=== PATIENT | male | born 1985 | race American Indian/Alaskan Native ===

== ENCOUNTER 2016-07-24 19:22 | Emergency (ER) | payer SELFPAY | END 2016-07-24 20:00 | disposition left against medical advice (07) | LOC: ED 19:22 | DX: R42 Dizziness and giddiness (principal); R11.2 Nausea with vomiting, unspecified; Z53.21 Procedure and treatment not carried out due to patient leaving prior to being seen by health care provider ==

== ENCOUNTER 2016-11-08 18:44 | Emergency (ER) | payer SELFPAY | END 2016-11-08 20:22 | disposition left against medical advice (07) | LOC: ED 18:44 | DX: R53.1 Weakness (principal); R42 Dizziness and giddiness; Z53.21 Procedure and treatment not carried out due to patient leaving prior to being seen by health care provider ==

== ENCOUNTER 2017-01-28 00:49 | Inpatient (IN) | payer OTHER ==
[2017-01-28 02:01] LABS: Basophils % (Auto) 1.1 % (0.0-1.8); Eosinophils % (Auto) 2.9 % (0.0-4.3); Hematocrit 43.9 % (35.5-45.6); Hemoglobin 14.7 gm/dl (11.8-15.2); Mean Corpuscular HGB Conc 33 % (32-34); Mean Corpuscular Hemoglobin 31 pg (28-32); Mean Corpuscular Volume 92 fl (84-94); Platelet Count 273 K/mm3 (140-440); Red Blood Count 4.78 M/mm3 (3.65-5.03); Red Cell Distribution Width 13.5 % (13.2-15.2); White Blood Count 10.3 K/mm3 (4.5-11.0)
[2017-01-28 02:09] LABS: Blood Urea Nitrogen 16 mg/dL (9-20); Calcium 9.2 mg/dL (8.4-10.2); Carbon Dioxide 24 mmol/L (22-30); Glucose 107 mg/dL (75-100)
[2017-01-28 02:10] LABS: Anion Gap 18 mmol/L; Chloride 99.6 mmol/L (98-107); Potassium 3.8 mmol/L (3.6-5.0); Sodium 138 mmol/L (137-145)
--- NOTE | 2017-01-28 09:48 | XRay Report ---
AP CHEST: HISTORY: Hypertension AP view of the chest demonstrates a normal mediastinal and cardiac contour with clear lungs and normal bony and soft tissue structures. IMPRESSION: Unremarkable AP chest.
[2017-01-28 09:49] LABS: INR 0.95 (0.87-1.13)
[2017-01-28 09:50] LABS: Partial Thromboplastin Time 31.3 Sec. (24.2-36.6)
[2017-01-28 10:02] LABS: Alanine Aminotransferase 26 units/L (7-56); Albumin 4.6 g/dL (3.9-5); Albumin/Globulin Ratio 1.6 %; Alkaline Phosphatase 38 units/L (35-129); Total Protein 7.5 g/dL (6.3-8.2)
[2017-01-28 10:06] LABS: Bilirubin,Direct < 0.2 mg/dL (0-0.2)
[2017-01-28] MEDS ORDERED: APRESOLINE ONE (11:27)
[2017-01-28] MEDS ORDERED: MORPHINE IV PRN ×2 (11:38→11:55)
[2017-01-28] MEDS ORDERED: AMBIEN PO PRN (11:38)
[2017-01-28] MEDS ORDERED: NITROSTAT SL PRN (11:38)
[2017-01-28] MEDS ORDERED: SODIUM CHLORIDE FLUSH SYRINGE 10 ML IV PRN (11:38)
--- NOTE | 2017-01-28 11:42 | History and Physical Report ---
History of Present Illness Date of examination: 01/28/17 Date of admission: 01/28/17 08:39 Chief complaint: Chest pain History of present illness: This is a 31 y/o male with h/o asthma, HTN presented with c/o chest pain. He states that it started on Sunday, located on the anterior chest wall pressure in type without any radiation. when he was anxious. The pain was intermittent since then, 8/10 in intensity no aggravating factor, relieves on its own. Today it recurred again and more intense and lasting longer than usual and thats why EMS was summoned. According to the EMS record he was diaphoretic at the scene. However he denies shortness of breath, cough, nausea vomiting dizziness or sense of impending doom. He denied any recent travel leg pain or swelling. His chest pain is now resolved. He states he's never seen a physician for chest pain prior he does admit to anxiety. Past medical History: h/o HTN, asthma Past surgical History: None Social History: Lives with family, denies any smoking, drinking and elicit drug abuse. Family History: Significant for HTN, CHF in mother Review of System: Constitutional: no fever, no chills, no weight loss Ears, eyes, nose, mouth and throat: no nasal congestion, no nasal discharge, no sinus pressure, no vision change, no red eye. Neck: No neck pain or rigidity. Cardiovascular: + chest pain, no orthopnea, no palpitations, no leg swelling Respiratory: No shortness of breath, no cough, no congestion, no wheezing Gastrointestinal: no abdominal pain, no nausea, no vomiting Genitourinary : no dysuria, no hematuria Musculoskeletal: no joint swelling or muscle ache Integumentary: no rash, no pruritis Neurological: no parathesias, no numbness, no tingling Endocrine: no cold or heat intolerance, no polyuria or polydipsia Hematologic/Lymphatic: no easy bruising, no easy bleeding, no gland swelling Allergic/Immunologic: no urticaria, no angioedema. Medications and Allergies Allergies Allergy/AdvReac Type Severity Reaction Status Date / Time No Known Allergies Allergy Verified 01/28/17 01:03 Home Medications Medication Instructions Recorded Confirmed Last Taken Type Amlodipine Besylate [Norvasc] 5 mg PO DAILY 30 Days 01/29/17 Unknown Rx Lisinopril [Zestril TAB] 20 mg PO QDAY #30 tablet 01/29/17 Unknown Rx Pantoprazole [Protonix] 40 mg PO QDAY #30 tablet 01/29/17 Unknown Rx Exam - Physical Exam Narrative exam: GENERAL: This is well-developed obese AAM lying on bed appeared to be in no discomfort. HEENT: Normocephalic. Atraumatic. Extraocular motions are intact. No conjunctival congestion or icterus. Patient has moist mucous membranes. External auditory canal and nares patent bilaterally. NECK: Supple. Trachea midline. No JVD, thyromagaly or lymphadenopathy. CHEST/LUNGS: Clear to auscultated bilaterally. There is no respiratory distress noted, breathing nonlabored. No wheezes crackles or rhonchi. HEART/CARDIOVASCULAR: Regular in rate and rhythm. PMI at the apex. There is no gallop rub or murmur. ABDOMEN: Abdomen is soft, nontender. Patient has normal bowel sounds. There is no abdominal distention. No organomagaly or rigidity. SKIN: There is no rash, no erythrema. There is no diaphoresis. Warm and dry. NEUROLOGY: The patient is awake, alert, and oriented. The patient is cooperative. The patient has normal speech. No focal motor deficit. MUSCULOSKELETAL: No joint effusion or tenderness. Muscle strength equal bilaterally. No muscle wasting. EXTRIMITY: No edema, cyanosis or clubbing. PSYCH: No depression or anxiety noted. Cooperative. - Constitutional Vitals: Temp Pulse Resp BP Pulse Ox 98.4 F 83 17 126/75 93 01/28/17 01:36 01/28/17 06:30 01/28/17 06:30 01/28/17 06:30 01/28/17 06:30 Results - Labs CBC & Chem 7: 01/28/17 11:49 01/28/17 11:49 - Imaging and Cardiology Chest x-ray: report reviewed Assessment and Plan Chest pain - will admit to telemetry bed - monitor with serial CE and EKG - will place on Aspirin, statin - as needed SL NTG and iv morphin for pain - Monitor BP, add betablocker and ACEI - order 2D echo and stress test in the am - cardiology consult - cardiac diet now, NPO after midnight - provide DVT Px with lovenox h/o asthma - not on exacerbation - nebulizer as needed Morbid obesity - counselled for diet and exercise HTN - cont lisinopril DVT Px - lovenox
[2017-01-28 12:33] LABS: Basophils % (Auto) 0.8 % (0.0-1.8); Eosinophils % (Auto) 3.5 % (0.0-4.3); Hematocrit 45.7 % (35.5-45.6); Hemoglobin 15.4 gm/dl (11.8-15.2); Mean Corpuscular HGB Conc 34 % (32-34); Mean Corpuscular Hemoglobin 31 pg (28-32); Mean Corpuscular Volume 92 fl (84-94); Platelet Count 294 K/mm3 (140-440); Red Blood Count 4.99 M/mm3 (3.65-5.03); Red Cell Distribution Width 13.5 % (13.2-15.2); White Blood Count 9.3 K/mm3 (4.5-11.0)
[2017-01-28 12:51] LABS: Anion Gap 18 mmol/L; BUN/Creatinine Ratio 13.33; Blood Urea Nitrogen 12 mg/dL (9-20); Calcium 8.9 mg/dL (8.4-10.2); Carbon Dioxide 28 mmol/L (22-30); Chloride 98.6 mmol/L (98-107); Glucose 89 mg/dL (75-100); Potassium 4.4 mmol/L (3.6-5.0); Sodium 140 mmol/L (137-145)
[2017-01-28] MEDS: ZESTRIL PO SCH (13:19)
--- NOTE | 2017-01-28 16:11 | Emergency Department Report ---
ED Chest Pain HPI - General Chief Complaint: Chest Pain Stated Complaint: CHEST PAIN Time Seen by Provider: 01/28/17 07:56 Source: patient, EMS Mode of arrival: Stretcher Limitations: No Limitations - History of Present Illness Initial Comments: Patient complains of anterior chest tightening which is not pleuritic or radiating. He states that it started on Sunday when he was anxious. He took a Valium at that time. It was intermittent since then. Today it recurred and EMS was summoned. According to the EMS record he was diaphoretic at the scene. When I asked him about this he did admit that he was sweating. However he denied shortness of breath nausea vomiting dizziness or sense of impending doom. He denied cough. He denied any recent travel leg pain or swelling. His chest pain is now resolved. He states he's never seen a physician for chest pain prior he does admit to anxiety. MD Complaint: chest pain -: Gradual, days(s) Onset: during rest Pain Location: substernal Pain Radiation: none Severity: moderate Quality: tightness Consistency: intermittent, now resolved Improves With: nothing Worsens With: nothing re: diaphoresis (possibly according to EMS record yes). denies: nausea, vomting Other Symptoms: denies: cough, fever, syncope Treatments Prior to Arrival: none Aspirin use within the Past 7 Days: (0) No - Related Data Previous Rx's Medication Instructions Recorded Last Taken Type Amlodipine Besylate [Norvasc] 2.5 mg PO DAILY 30 Days 05/01/15 05/31/16 Rx Allergies Allergy/AdvReac Type Severity Reaction Status Date / Time No Known Allergies Allergy Verified 01/28/17 01:03 Heart Score - HEART Score History: Moderately suspicious EKG: Non-specific Age: < 45 Risk factors: 1-2 risk factors Troponin: < normal limit HEART Score: 3 - Critical Actions Critical Actions: 0-3 pts:0.9-1.7%risk of adverse cardiac event.Candidate for discharge ED Review of Systems ROS: Stated complaint: CHEST PAIN Other details as noted in HPI Constitutional: denies: chills, fever Eyes: denies: eye pain, eye discharge, vision change ENT: denies: ear pain, throat pain Respiratory: denies: cough, shortness of breath, wheezing Cardiovascular: chest pain. denies: palpitations Endocrine: no symptoms reported Gastrointestinal: denies: abdominal pain, nausea, diarrhea Genitourinary: denies: urgency, dysuria Musculoskeletal: denies: back pain, joint swelling, arthralgia Skin: denies: rash, lesions Neurological: denies: headache, weakness, paresthesias Psychiatric: anxiety. denies: depression Hematological/Lymphatic: denies: easy bleeding, easy bruising ED Past Medical Hx - Past Medical History Previous Medical History?: Yes Hx Hypertension: Yes Hx Asthma: Yes Additional medical history: PNEUMONIA, back pain - Surgical History Past Surgical History?: No - Family History Family history: other (no first-degree relatives with myocardial infarction) - Social History Smoking Status: Never Smoker Substance Use Type: None - Medications Home Medications: Home Medications Medication Instructions Recorded Confirmed Last Taken Type Amlodipine Besylate [Norvasc] 2.5 mg PO DAILY 30 Days 05/01/15 01/28/17 Rx ED Physical Exam - General Limitations: No Limitations General appearance: alert, in no apparent distress, obese (somewhat morbidly obese) - Head Head exam: Present: atraumatic, normocephalic - Eye Eye exam: Present: normal appearance. Absent: scleral icterus - ENT ENT exam: Present: mucous membranes moist - Neck Neck exam: Present: normal inspection - Respiratory Respiratory exam: Present: normal lung sounds bilaterally. Absent: respiratory distress - Cardiovascular Cardiovascular Exam: Present: regular rate, normal rhythm. Absent: systolic murmur, diastolic murmur, rubs, gallop - GI/Abdominal GI/Abdominal exam: Present: soft, normal bowel sounds. Absent: distended, tenderness, guarding, rebound - Rectal Rectal exam: Present: deferred - Extremities Exam Extremities exam: Present: normal inspection - Back Exam Back exam: Present: normal inspection - Neurological Exam Neurological exam: Present: alert, oriented X3, CN II-XII intact. Absent: motor sensory deficit - Psychiatric Psychiatric exam: Present: normal affect, normal mood - Skin Skin exam: Present: warm, dry, intact, normal color. Absent: rash ED Course Vital Signs 01/28/17 01/28/17 01/28/17 01:07 01:11 01:21 Temperature Pulse Rate 87 84 90 Respiratory 15 10 L 15 Rate Blood Pressure 148/79 148/79 Blood Pressure [Left] O2 Sat by Pulse 98 98 99 Oximetry 01/28/17 01/28/1701/28/17 01:25 01:30 01:36 Temperature 98.4 F Pulse Rate 87 86 90 Respiratory 19 17 15 Rate Blood Pressure 148/79 149/81 Blood Pressure 148/79 [Left] O2 Sat by Pulse 98 96 99 Oximetry 01/28/17 01/28/17 01/28/17 02:00 02:30 03:00 Temperature Pulse Rate 87 85 Respiratory 22 21 Rate Blood Pressure 146/79 137/79 152/74 Blood Pressure [Left] O2 Sat by Pulse 95 96 96 Oximetry 01/28/17 01/28/17 01/28/17 03:30 04:00 04:31 Temperature Pulse Rate Respiratory Rate Blood Pressure 147/80 147/81 153/70 Blood Pressure [Left] O2 Sat by Pulse 90 91 94 Oximetry 01/28/17 01/28/17 01/28/17 05:00 05:30 06:00 Temperature Pulse Rate 84 82 Respiratory 16 16 Rate Blood Pressure 169/85 151/82 141/74 Blood Pressure [Left] O2 Sat by Pulse 93 92 91 Oximetry 01/28/17 06:30 Temperature Pulse Rate 83 Respiratory 17 Rate Blood Pressure 126/75 Blood Pressure [Left] O2 Sat by Pulse 93 Oximetry - Reevaluation(s) Reevaluation #1: Reviewed the patient's prehospital EKGs. They look like her typical for LVH but there are inverted T waves in the inferolateral leads. There is increased voltage. Skin is cannot be excluded but it does look like an LVH pattern. There is a slight amount of ST depression in the inferior leads. The EKG taken here is essentially similar with inferolateral changes increased voltage J- point elevation in V2. Consider LVH consider ischemia. The patient remained calm, the emergency department. He was admitted to the hospitalist service in stable condition with further care and evaluation. 01/28/17 16:12 DAMON score - Damon Score Age > 65: (0) No Aspirin use within the Past 7 Days: (0) No 3 or more CAD Risk Factors: (0) No 2 or more Angina events in past 24 hrs: (0) No Known CAD with more than 50% Stenosis: (0) No Elevated Cardiac Markers: (0) No ST Deviation Greater than 0.5mm: (0) No DAMON Score: 0 ED Medical Decision Making - Lab Data Result diagrams: 01/28/17 11:49 01/28/17 11:49 - EKG Data -: EKG Interpreted by Me (see EKGs prehospital and emergency Department discussed above) - Radiology Data Radiology results: report reviewed (no acute process) Critical care attestation.: If time is entered above; I have spent that time in minutes in the direct care of this critically ill patient, excluding procedure time. ED Disposition Clinical Impression: Uncontrolled hypertension Chest pain Qualifiers: Chest pain type: unspecified Qualified Code(s): R07.9 - Chest pain, unspecified Disposition: -09 OP ADMIT IP TO THIS HOSP Is pt being admited?: Yes Does the pt Need Aspirin: Yes Condition: Stable Time of Disposition: 16:14
--- NOTE | 2017-01-28 18:30 | Consultation ---
History of Present Illness Consult date: 01/28/17 Medications and Allergies Allergies Allergy/AdvReac Type Severity Reaction Status Date / Time No Known Allergies Allergy Verified 01/28/17 01:03 Home Medications Medication Instructions Recorded Confirmed Last Taken Type Amlodipine Besylate [Norvasc] 2.5 mg PO DAILY 30 Days 05/01/15 01/28/17 Rx Active Meds: Active Medications Aspirin (Baby Aspirin) 81 mg PO QDAY [facility] Atorvastatin Calcium (Lipitor) 40 mg PO QHS [facility] Lisinopril (Zestril) 5 mg PO QDAY [facility] Last Admin: 01/28/17 13:19 Dose: 5 mg Morphine Sulfate (Morphine) 2 mg IV Q5MIN PRN PRN Reason: Chest Pain unrelieved by NTG Nitroglycerin (Nitrostat) 0.4 mg SL Q5M PRN PRN Reason: Chest Pain Pantoprazole (Protonix) 40 mg PO QDAY [facility] Sodium Chloride (Sodium Chloride Flush Syringe 10 Ml) 10 ml IV PRN PRN PRN Reason: LINE FLUSH Zolpidem Tartrate (Ambien) 5 mg PO QHS PRN PRN Reason: Sleep Physical Examination Vital Signs Pulse Resp Pulse Ox 87 15 98 01/28/17 01:07 01/28/17 01:07 01/28/17 01:07 Results 01/28/17 11:49 01/28/17 11:49 Cardiac Enzymes 01/28/17 Range/Units 09:05 AST 14 (5-40) units/L Coagulation 01/28/17 Range/Units 09:05 PT 12.6 (12.2-14.9) Sec. INR 0.95 (0.87-1.13) APTT 31.3 (24.2-36.6) Sec. CBC 01/28/17 Range/Units 11:49 WBC 9.3 (4.5-11.0) K/mm3 RBC 4.99 (3.65-5.03) M/mm3 Hgb 15.4 H (11.8-15.2) gm/dl Hct 45.7 H (35.5-45.6) % Plt Count 294 (140-440) K/mm3 Lymph # 2.2 (1.2-5.4) K/mm3 Door # 0.5 (0.0-0.8) K/mm3 Eos # 0.3 (0.0-0.4) K/mm3 Baso # 0.1 (0.0-0.1) K/mm3 Comprehensive Metabolic Panel 01/28/17 01/28/17 Range/Units 09:05 11:49 Sodium 140 (137-145) mmol/L Potassium 4.4 (3.6-5.0) mmol/L Chloride 98.6 (98-107) mmol/L Carbon Dioxide 28 (22-30) mmol/L BUN 12 (9-20) mg/dL Creatinine 0.9 (0.8-1.5) mg/dL Glucose 89 (75-100) mg/dL Calcium 8.9 (8.4-10.2) mg/dL Direct Bilirubin < 0.2 (0-0.2) mg/dL AST 14 (5-40) units/L ALT 26 (7-56) units/L Alkaline Phosphatase 38 (35-129) units/L Total Protein 7.5 (6.3-8.2) g/dL Albumin 4.6 (3.9-5) g/dL Assessment and Plan Detailed Cardiology consult dictated.
--- NOTE | 2017-01-29 04:26 | Admit Criteria Form ---
Admission Criteria Documentation: CHEST PAIN Clinical Indications for Admission to Inpatient Care (Place 'X' for any and all applicable criteria): Admission is indicated for chest pain and ANY ONE of the following(1)(2)(3)(4)(5 ): [ ]I. Angina with acute coronary syndrome (Also use Myocardial Infarction or Angina guideline) [ ]II. Hemodynamic instability [ ]III. Angina needing acute intervention as indicated by ALL of the following( 11)(12): [ ]a) Unstable angina is present as indicated by angina that is ANY ONE of the following: [ ]i) New onset [ ]ii) Nocturnal [ ]iii) Prolonged at rest [ ]iv) Progressive [ ]b) Angina warrants acute intervention as indicated by ANY ONE of the following: [ ]i) Recurrent angina (e.g, not responding as previously to treatment) [ ]ii) Angina at rest or with low-level activities despite initial medical therapy [ ]iii) New or presumably new ST-segment depression on ECG [ ]iv) Signs or symptoms of heart failure (eg, dyspnea, pulmonary edema) [ ]v) New or worsening mitral regurgitation [ ]vi) Hemodynamic instability [ ]vii) Dangerous arrhythmia (eg, sustained ventricular tachycardia) [ ]viii) History of percutaneous coronary intervention within 6 months [ ]ix) History of coronary artery bypass graft surgery [ ]x) DAMON risk score of 2 or greater[A] [ ]xi) History of Diabetes(14) [ ]xii) High-risk cardiac ischemia findings on noninvasive testing (e.g, echocardiogram, treadmill testing, nuclear scan) [ ]xiii) Chronic renal insufficiency (ie, estimated GFR less than 60 mL/min/1.732m) [ ]xiv) Left ventricular ejection fraction less than 40% [ ]IV. Evidence of WI (eg, cardiac biomarkers positive, ST-segment elevation on ECG) also use Myocardial Infarction Criteria Form. [ ]V. Pulmonary edema [ ]. Respiratory distress [ ]VII. Chest pain indicative of serious diagnosis other than coronary artery disease (eg, aortic dissection) [ ]VIII. Contraindications and/or Inappropriate clinical situations for Observational Care in patients with Chest Pain, when ANY ONE of the following is required: [ ]a) Patient with risk factor for pulmonary embolism, acute coronary syndrome and myocardial infarction (18) [ ]b) Patient with Pulmonary embolism require an average LOS of 4.3 days, therefore emergency department observation management is inappropriate 18,23 [ ]c) Painful condition/s in the elderly, have the highest rate of recidivism after emergency department observation management (10.8%) 20,21,22 [ ]d) Elevated cardiac biomarker requires intensive and exhaustive care (19) [X ]IX. General contraindications and/or Inappropriate clinical situations for Observational Care in patients with Chest Pain, when ANY ONE of the following is required: [ X]a) Prediction of prolongation of LOS based on ANY ONE of the following may be considered as a contraindication for observational care 2, 3, 4, 5, 6, 7, 8, 9, 10, 11 [ ]i) Age > 65 yrs. [ ]ii) Patient arriving by ambulance [ ]iii) Patient with high acuity [X ]iv) Patient requiring vital sign monitoring [ ]v) Patient on IV medication [ ]b) Systolic blood pressures 180mmHg 3,12 [ ]c) Patient with altered mental status including delirium and other alteration of consciousness, (3) [ ]d) Patient whose discharge disposition will be to a group home home or rehabilitation home should not be managed in Emergency Department Observation Unit. CMS rule requires 3 days hospital stay before such placement. 3,13 [ ]e) Patient with failure to thrive due to broad array of etiologies 3,16,17 [ ]f) Inability to ambulate 3,14 Extended stay beyond goal length of stay may be needed for (1)(28): [ ]a) Specific condition diagnosed after evaluation (eg, pulmonary embolism, aortic dissection) [ ]b) Unstable angina [ ]c) Continued suspicion of acute coronary syndrome with inability to complete needed cardiac evaluation (eg, patient clinically unable to undergo stress testing) [ ]d) Myocardial infarction (Contents from ANGINA and CHEST PAIN clinical indications for admission to inpatient care have been integrated in this form) The original [employer] content created by [employer] has been revised. The portions of the content which have been revised are identified through the use of italic text or in bold, and [facility] [employer] has neither reviewed nor approved the modified material. All other unmodified content is copyright [employer] [employer] ([employer] Please see references footnoted in the original [employer] [facility] [employer] edition 2016 Admission Criteria Met: Yes
[2017-01-29] MEDS ORDERED: BABY ASPIRIN PO SCH (10:00)
[2017-01-29] MEDS ORDERED: PROTONIX PO SCH (10:00)
[2017-01-29] MEDS ORDERED: LEXISCAN IV ONE ×2 (10:56→10:58)
[2017-01-29 12:43] VITALS: BP 161/85
[2017-01-29] MEDS: ZESTRIL PO SCH (12:43)
[2017-01-29] MEDS ORDERED: ZESTRIL PO SCH (12:46)
--- NOTE | 2017-01-29 12:51 | Discharge Summary ---
Providers - Providers Date of Admission: 01/28/17 08:39 Date of discharge: 01/29/17 Attending physician: ZANE HOWE 01/28/17 Consult to Cardiac Rehabilitation [CONS] Routine Reason For Exam: Phase I 01/28/17 11:38 Consult to Cardiology [CONS] Routine Consulting Provider: VESTA CARRILLO Reason For Exam: chest pain Hospitalization Condition: Stable Hospital course: This is a 31 y/o male with h/o asthma, HTN presented with intermittent c/o chest pain since Sunday. He was admitted to telemetry and monitored with serial CE and EKG. He is s/p lexiscan MPI stress test this AM which was negative for ischemia. Echo obtained and reviewed - showed mild to moderate LVH, EF 50 - 55%, trace MR. Patient was stable for discharge and cleared from cardiology standpoint. He was Recommend to follow up in [place] [facility] office with Sharda Manzanares NP , within 2 weeks of hospital discharge ([phone]). Discharge diagnosis: Acute Chest pain - likely GERD - Stress test and 2d echo negative h/o asthma - not on exacerbation Morbid obesity - counselled for diet and exercise HTN - cont lisinopril Disposition: DC-01 TO HOME OR SELFCARE Time spent for discharge: 32 minutes Core Measure Documentation - Palliative Care Palliative Care/ Comfort Measures: Not Applicable - Core Measures Any of the following diagnoses?: none Exam - Physical Exam Narrative exam: GENERAL: This is well-developed wobese male lying on bed appeared to be in no discomfort. HEENT: Normocephalic. Atraumatic. Extraocular motions are intact. No conjunctival congestion or icterus. Patient has moist mucous membranes. External auditory canal and nares patent bilaterally. NECK: Supple. Trachea midline. No JVD, thyromagaly or lymphadenopathy. CHEST/LUNGS: Clear to auscultated bilaterally. There is no respiratory distress noted, breathing nonlabored. No wheezes crackles or rhonchi. HEART/CARDIOVASCULAR: Regular in rate and rhythm. PMI at the apex. There is no gallop rub or murmur. ABDOMEN: Abdomen is soft, nontender. Patient has normal bowel sounds. There is no abdominal distention. No organomagaly or rigidity. SKIN: There is no rash, no erythrema. There is no diaphoresis. Warm and dry. NEUROLOGY: The patient is awake, alert, and oriented. The patient is cooperative. The patient has normal speech. No focal motor deficit. MUSCULOSKELETAL: No joint effusion or tenderness. Muscle strength equal bilaterally. No muscle wasting. EXTRIMITY: No edema, cyanosis or clubbing. PSYCH: No depression or anxiety noted. Cooperative. - Constitutional Vitals: Temp Pulse Resp BP Pulse Ox 98.1 F 90 20 161/85 99 01/29/17 08:00 01/29/17 12:43 01/29/17 12:10 01/29/17 12:43 01/29/17 12:10 Plan Activity: advance as tolerated Weight Bearing Status: Weight Bear as Tolerated Diet: low fat, low salt Additional Instructions: follow up in [place] [facility] office with Sharda Manzanares NP, within 2 weeks of hospital discharge ([phone]). Follow up with: NATALIA BURNS MD [Other] - 7 Days Prescriptions: Amlodipine Besylate [Norvasc] 5 mg PO DAILY 30 Days Lisinopril [Zestril TAB] 20 mg PO QDAY #30 tablet Pantoprazole [Protonix] 40 mg PO QDAY #30 tablet
[2017-01-29] MEDS ORDERED: ZESTRIL PO ONE (13:00)
--- NOTE | 2017-01-29 13:41 | Progress Note ---
Assessment and Plan Assessment: Chest pain, atypical - currently resolved; Amrita negative for AMI; DDimer WNL; ECG with NAF. HTN LVH H/o asthma Morbid obesity Plan: s/p lexiscan MPI stress test this AM which was negative for ischemia. Echo reviewed - mild to moderate LVH, EF 50 - 55%, trace MR. Currently stable cardiac status. Pt may discharge home from cardiology standpoint. Recommend follow up in our office with Sharda Manzanares NP, within 2 weeks of hospital discharge ([phone]). The patient has been seen in conjunction with Dr. Degroot who agrees with the assessment and plan of care. Subjective Date of service: 01/29/17 Principal diagnosis: chest pain Interval history: Pt resting comfortably at bedside, no complaints. at bedside. s/p stress test this AM. VSS. Objective Last Vital Signs Temp 98.1 F 01/29/17 08:00 Pulse 90 01/29/17 12:43 Resp 20 01/29/17 12:10 BP 161/85 01/29/17 12:43 Pulse Ox 96 01/29/17 13:20 - Physical Examination General: Appears Well HEENT: Positive: PERRL, Normocephaly, Mucus Membranes Moist Neck: Positive: neck supple, trachea midline Cardiac: Positive: Reg Rate and Rhythm, S1/S2 Lungs: Positive: clear to auscultation, Decreased Breath Sounds Neuro: Positive: Grossly Intact, Cranial Nerve 2-12 Intact Abdomen: Positive: Unremarkable, Soft, Active Bowel Sounds. Negative: Tender Skin: Positive: Clear. Negative: Rash, Wound Musculoskeletal: No Fluid Collection, No Pain, other Extremities: Absent: edema - Imaging and Cardiology EKG: report reviewed, image reviewed Pharmacologic stress test: report reviewed Echo: report reviewed - Telemetry EKG Rhythm: Sinus Rhythm
--- NOTE | 2017-01-29 19:03 | Consultation ---
CARDIOLOGY CONSULTATION AGE: 31. SEX: Male. REFERRING PHYSICIAN: Magaly Hassan MD HISTORY OF PRESENT ILLNESS: A 31-year-old morbidly obese, pleasant -[place]ian gentleman with a history of hypertension for the past 1 year, was admitted with substernal, moderate tightness-like chest pain, which he had on Sunday (01/26/2017). Apparently, he took Valium for getting an MRI done and after that (as per him), he started having this pain. He also had diaphoresis. He did not have any shortness of breath. After several minutes, the chest pain subsided. He gives history of anxiety features. No history of diabetes mellitus or hyperlipidemia. Serial troponins were negative and myocardial infarction has been ruled out. PAST MEDICAL HISTORY: Nothing pertinent. SOCIAL HISTORY: He was a cigarette smoker in the past, used to smoke half a pack of cigarettes per day for 4 years and he quit smoking 6 years ago. No history of alcohol or drug abuse. FAMILY HISTORY: As per him, his mother had myocardial infarction at the age of 36. Further details are not known at this time. ALLERGIES: None known. MEDICATIONS: Aspirin 81 mg p.o. daily, atorvastatin 40 mg p.o. daily, lisinopril 5 mg p.o. daily, Nitrostat 0.4 mg sublingual p.r.n., and Protonix 40 mg p.o. daily. REVIEW OF SYSTEMS: CARDIOVASCULAR: As described in the history. METABOLISM AND ENDOCRINOLOGY: As described in the history. GASTROINTESTINAL: History of GERD. PHYSICAL EXAMINATION: GENERAL: A 31-year-old morbidly obese (BMI of 41.5) pleasant -[place]ian gentleman, free from chest pain at this time. VITAL SIGNS: He is afebrile, pulse is 80 per minute and regular, blood pressure 143/83 mmHg, and respirations 18 per minute. NEUROLOGIC: He is alert and oriented x 3. HEENT: Negative. NECK: Supple. No JVD, no bruit, no thyromegaly. HEART: PMI could not be felt satisfactorily. No palpable thrills. Auscultation of the heart reveals S1, S2 heard regular. No S3 or S4. No murmur or rub. EXTREMITIES: Peripheral pulses felt. No edema. LUNGS: Bilateral air entry good and equal. No bronchial breathing. No wheezing. ABDOMEN: Soft, benign. No organomegaly. SKIN: Negative. BONE AND JOINTS: Negative. LABORATORY DATA: Cardiac enzymes as described in the history. D-dimer less than 135. Potassium, BUN, and creatinine within normal limits. Glucose 89. ProBNP unremarkable. Troponins x 3 negative. Chest x-ray AP view normal. EKG: Normal sinus rhythm, normal axis, T-wave inversions in the inferolateral leads, possible inferolateral ischemia, J-point elevations in V1-V3. It is an abnormal EKG. No previous ECGs are available for comparison. IMPRESSION: 1. Substernal chest pain, myocardial infarction ruled out. 2. Abnormal EKG. 3. Chronic anxiety. 4. Morbid obesity. 5. History of hypertension. RECOMMENDATIONS: 1. Continue present medications. 2. We will follow up echocardiogram. 3. We will discontinue stress echocardiogram (as echocardiogram will be a limited study) and order for exercise stress nuclear scan in the a.m. and it will be followed up. Thank you again, we will follow. Yours Sincerely, JOB# [id number] [facility]
--- NOTE | 2017-01-30 07:19 | Treadmill Report ---
Cardiac nuclear perfusion study done on 01/29/2017 for recurrent chest pain. READING PHYSICIAN: Dr. Anurag Yuan. IMAGING PROTOCOL: The patient received 10 mCi of Technetium 99m Tetrofosmin for resting image and 28 mCi of Technetium 99m Tetrofosmin for stress imaging. The imaging for the whole procedure was completed 30-90 minutes following the initial injection of Technetium 99m tetrofosmin. The SPECT imaging in the 180 degree arc was performed in the right anterior oblique projection. Computerized reconstruction of the images was performed for analysis. IMAGING RESULTS: Cavity is mildly dilated stress to rest. It is a technically limited study due to morbid obesity, but cavity is mildly dilated both to stress to rest with normal distribution of radionuclide in the anterior, inferior, septal and apical regions on stress images. Gated SPECT, EF 61% with no wall motion abnormalities. The patient infused Lexiscan with no EKG changes. SUMMARY: 1. Negative Lexiscan EKG. 2. Normal rest and stress myocardial perfusion scan. No significant stress ischemia. No wall motion abnormality. Gated SPECT, EF 61%. JOB# [id number] RADHA/BENITO KAUFMAN
[2017-01-30] MEDS ORDERED: ZESTRIL PO SCH (10:00)
== END 2017-01-29 14:57 | disposition home or self-care (01) | DRG 392 ==
LOC: ED 00:49 → 4A 08:39
PROVIDERS: ADMIT Internal Medicine; ATTEND Internal Medicine
DX: K21.9 Gastro-esophageal reflux disease without esophagitis (principal); Z68.1 Body mass index [BMI] 19.9 or less, adult; I42.0 Dilated cardiomyopathy; I10 Essential (primary) hypertension; J45.909 Unspecified asthma, uncomplicated; Z82.49 Family history of ischemic heart disease and other diseases of the circulatory system; E66.01 Morbid (severe) obesity due to excess calories; Z87.01 Personal history of pneumonia (recurrent); Z87.891 Personal history of nicotine dependence; F41.9 Anxiety disorder, unspecified; R94.31 Abnormal electrocardiogram [ECG] [EKG]; Z71.89 Other specified counseling
CPT/HCPCS: 36415; 71010; 78452; 80048; 80074; 83880; 84484; 85025; 85379; 85610; 85730; 93005; 93010; 93017; 93306; 94760; A9270-GY; A9502; J0360; J2785; J3246

== ENCOUNTER 2017-11-08 23:12 | Emergency (ER) | payer SELFPAY ==
[2017-11-09 00:18] LABS: Basophils # (Auto) 0.1 K/mm3 (0.0-0.1); Basophils % (Auto) 0.9 % (0.0-1.8); Eosinophils # (Auto) 0.4 K/mm3 (0.0-0.4); Eosinophils % (Auto) 4.7 % (0.0-4.3); Hemoglobin 15.7 gm/dl (11.8-15.2); Lymphocytes # (Auto) 1.2 K/mm3 (1.2-5.4); Lymphocytes % (Auto) 15.6 % (13.4-35.0); Mean Corpuscular HGB Conc 33 % (32-34); Mean Corpuscular Hemoglobin 30 pg (28-32); Mean Corpuscular Volume 91 fl (84-94); Monocytes # (Auto) 0.7 K/mm3 (0.0-0.8); Platelet Count 266 K/mm3 (140-440); Red Cell Distribution Width 13.7 % (13.2-15.2)
[2017-11-09 00:37] LABS: BUN/Creatinine Ratio 10; Blood Urea Nitrogen 9 mg/dL (9-20)
[2017-11-09 00:38] LABS: Alanine Aminotransferase 25 units/L (7-56); Albumin 4.1 g/dL (3.9-5); Hemolysis Index 8
[2017-11-09 02:55] LABS: Bilirubin,Urine NEG (Negative); Blood,Urine NEG (Negative); Color,Urine Yellow (Yellow); Protein,Urine <15 mg/dL mg/dL (Negative); RBC,Urine < 1.0 /HPF (0.0-6.0); Urobilinogen,Urine < 2.0 mg/dL (<2.0)
[2017-11-09] MEDS ORDERED: NORVASC PO ONE (03:11)
[2017-11-09] MEDS ORDERED: NORVASC ONE (03:12)
[2017-11-09 04:21] VITALS: BP 179/121
--- NOTE | 2017-11-09 04:34 | Emergency Department Report ---
ED N/V/D HPI - General Chief complaint: Nausea/Vomiting/Diarrhea Stated complaint: RED EYES Time Seen by Provider: 11/09/17 04:34 Source: patient Mode of arrival: Ambulatory Limitations: No Limitations - History of Present Illness Initial comments: 32-year-old -English male with a past medical history of hypertension comes in stating he's not been able to hold anything down all day. Patient reports it is been having diarrhea and vomiting with nausea. He reports that his last vomited and last diarrhea was at 8 PM. He reports he's been feeling weak. Patient denies any fever or chills no abdominal pain no dysuria no testicular pain. Patient was noted to have elevated blood pressure in triage and reports that he has ran out of his blood pressure medicine. Patient does not have a primary care provider and last got his medication refilled at [place]. Patient denies any allergies to medications. He reports that he is taking amlodipine 10 mg daily. MD complaint: nausea, vomiting, diarrhea -: days(s) (1) Description of Vomiting: food contents Description of Diarrhea: water Associated Abdominal Pain: No Consistency: intermittent (vomiting and diarrhea) Context: possible food poisoning Associated Symptoms: denies other symptoms - Related Data Home Medications Medication Instructions Recorded Confirmed Last Taken Amlodipine Besylate [Norvasc] 10 mg PO DAILY 11/09/17 11/09/17 3 Days Ago ~11/06/17 Previous Rx's Medication Instructions Recorded Last Taken Type amLODIPine [Norvasc] 10 mg PO DAILY #30 tab 11/09/17 Unknown Rx Allergies Allergy/AdvReac Type Severity Reaction Status Date / Time No Known Allergies Allergy Verified 01/28/17 01:03 ED Review of Systems ROS: Stated complaint: RED EYES Other details as noted in HPI Constitutional: denies: chills, fever ENT: denies: ear pain, throat pain Respiratory: denies: cough, shortness of breath, wheezing Cardiovascular: denies: chest pain, palpitations Endocrine: no symptoms reported Gastrointestinal: nausea, vomiting, diarrhea Genitourinary: denies: urgency, dysuria Neurological: denies: headache, weakness, paresthesias Psychiatric: denies: anxiety, depression Hematological/Lymphatic: denies: easy bleeding, easy bruising ED Past Medical Hx - Past Medical History Previous Medical History?: Yes Hx Hypertension: Yes Hx Heart Attack/AMI: No Hx Diabetes: No Hx Pulmonary Embolism: No Hx Asthma: Yes Hx COPD: No Hx Tuberculosis: No Additional medical history: PNEUMONIA, back pain - Surgical History Past Surgical History?: No - Social History Smoking Status: Never Smoker Substance Use Type: None - Medications Home Medications: Home Medications Medication Instructions Recorded Confirmed Last Taken Type Amlodipine Besylate [Norvasc] 10 mg PO DAILY 11/09/17 11/09/17 3 Days Ago History ~11/06/17 amLODIPine [Norvasc] 10 mg PO DAILY #30 tab 11/09/17 Unknown Rx ED Physical Exam - General Limitations: No Limitations General appearance: alert - Head Head exam: Present: atraumatic, normocephalic - Eye Eye exam: Present: normal appearance - ENT ENT exam: Present: mucous membranes moist - Respiratory Respiratory exam: Present: normal lung sounds bilaterally. Absent: respiratory distress - Cardiovascular Cardiovascular Exam: Present: regular rate, normal rhythm. Absent: systolic murmur, diastolic murmur, rubs, gallop - GI/Abdominal GI/Abdominal exam: Present: soft, normal bowel sounds - Extremities Exam Extremities exam: Present: normal inspection, full ROM - Neurological Exam Neurological exam: Present: alert, oriented X3 - Psychiatric Psychiatric exam: Present: normal affect, normal mood - Skin Skin exam: Present: warm, dry, intact, normal color. Absent: rash ED Course Vital Signs 11/08/17 11/09/17 11/09/17 23:33 03:10 03:16 Temperature 98.7 F Pulse Rate 90 92 H Respiratory 18 18 Rate Blood Pressure 171/111 199/121 Blood Pressure 204/117 [Left] Blood Pressure 199/121 [Right] O2 Sat by Pulse 96 97 Oximetry 11/09/17 11/09/17 04:21 04:39 Temperature Pulse Rate 83 Respiratory 18 Rate Blood Pressure Blood Pressure [Left] Blood Pressure 179/121 [Right] O2 Sat by Pulse 98 Oximetry ED Medical Decision Making - Lab Data Result diagrams: 11/08/17 23:56 11/08/17 23:56 - Medical Decision Making Patient has been evaluated by this provider fast track. Patient denies any nausea at this time. Last vomited in the last diarrhea episode was 8 PM. Discussed patient we'll give him oral fluids and see if he is able to hold it down. All his labs was within normal limits. Urinalysis was normal. Discussed the patient's is most likely a gastroenteritis. He needs to continue with fluids and advance his diet as tolerated. I discussed the patient that I' ll refill his amlodipine 10 mg. Discussed the patient we will refer him to [facility] for management of his chronic disease. Patient verbalized understanding. Critical care attestation.: If time is entered above; I have spent that time in minutes in the direct care of this critically ill patient, excluding procedure time. ED Disposition Clinical Impression: Gastroenteritis, Uncontrolled hypertension Disposition: TO HOME OR SELFCARE Is pt being admited?: No Does the pt Need Aspirin: No Condition: Stable Instructions: Hypertension (ED), Gastroenteritis (ED) Additional Instructions: Please be sure to take her amlodipine on a scheduled basis. Follow up with her primary care provider for management of your chronic disease. I have listed a provider below. Please increase her fluids and advance her diet as tolerated. Prescriptions: amLODIPine [Norvasc] 10 mg PO DAILY #30 tab Referrals: PRIMARY CARE, [Primary Care Provider] - 3-5 Days [facility] [Provider Group] - 3-5 Days Forms: Work/School Release Form(ED)
== END 2017-11-09 05:03 | disposition home or self-care (01) ==
LOC: ED 23:12
DX: K52.9 Noninfective gastroenteritis and colitis, unspecified (principal); I10 Essential (primary) hypertension; J45.909 Unspecified asthma, uncomplicated
CPT/HCPCS: 36415; 80053; 81001; 85025; 99283

== ENCOUNTER 2018-07-11 21:33 | Emergency (ER) | payer SELFPAY ==
[2018-07-11] MEDS ORDERED: TYLENOL PO ONE (22:43)
[2018-07-11] MEDS ORDERED: CATAPRES PO ONE (22:49)
[2018-07-11] MEDS ORDERED: CATAPRES ONE (22:50)
[2018-07-11 22:53] VITALS: BP 161/113
--- NOTE | 2018-07-12 00:08 | XRay Report ---
FINAL REPORT EXAM: XR ANKLE 2V RT HISTORY: fall pain swelling TECHNIQUE: Two views of the right ankle PRIORS: None. FINDINGS: The bones are normally aligned and mineralized. The joint spaces are well-preserved. There is no evid ence of acute fracture. The soft tissues are unremarkable. There are plantar and Achilles calcaneal s purs. IMPRESSION: No evidence of acute fracture or subluxation.
--- NOTE | 2018-07-12 00:14 | XRay Report ---
FINAL REPORT EXAM: XR KNEE 1-2V RT HISTORY: fall/ pain swelling TECHNIQUE: 2 views of the right knee PRIORS: None. FINDINGS: The bones are normally aligned and mineralized. The joint spaces are well-preserved. There is no evid ence of acute fracture. The soft tissues are unremarkable. IMPRESSION: No evidence of acute fracture or subluxation. Normal right knee series
--- NOTE | 2018-07-12 02:07 | Emergency Department Report ---
ED Lower Extremity HPI - General Chief Complaint: Extremity Injury, Lower Stated Complaint: FALL/KNEE PAIN Time Seen by Provider: 07/12/18 00:47 Source: patient Mode of arrival: Ambulatory Limitations: No Limitations - History of Present Illness Initial Comments: pt is a 33 y/o aam who presents for right knee and ankle pain s/p GLF as I stepped in a whole in my yard and twisted my knee and ankle patient describes pain as 4/10 aching no swelling or deformity patient is ambulatory Tomasz to ED ambulated into ED there is just will see checked out. There is no numbness noted no deformity. Friends exacerbated by weightbearing pain was relieved by offloading and rest MD Complaint: knee injury, ankle injury Onset/Timin -: hour(s) Injury: Ankle: Right, Foot: Right Type of Injury: eversion, hyperextension Place: home Severity: moderate Severity scale (0 -10): 4 Improves With: rest Worsens With: weight bearing, movement, palpation Context: fall, other (stepped in whole ) Associated Symptoms: snap/pop sensation, ambulatory. denies: swelling, nu mbness, tingling - Related Data Home Medications Medication Instructions Recorded Confirmed Last Taken Amlodipine Besylate [Norvasc] 10 mg PO DAILY 11/09/17 11/09/17 3 Days Ago ~11/06/17 Previous Rx's Medication Instructions Recorded Last Taken Type amLODIPine [Norvasc] 10 mg PO DAILY #30 tab 11/09/17 Unknown Rx Cyclobenzaprine [Flexeril] 10 mg PO TID PRN #30 tablet 07/12/18 Unknown Rx Menthol/Camphor [[place] 1 applicatio TP QID PRN #1 tube 07/12/18 Unknown Rx Ointment] Naproxen 500 mg PO BID PRN #30 tablet 07/12/18 Unknown Rx Allergies Allergy/AdvReac Type Severity Reaction Status Date / Time No Known Allergies Allergy Verified 01/28/17 01:03 ED Review of Systems ROS: Stated complaint: FALL/KNEE PAIN Other details as noted in HPI Constitutional: denies: chills, fever Eyes: denies: eye pain, eye discharge, vision change ENT: denies: ear pain, throat pain Respiratory: denies: cough, shortness of breath, wheezing Cardiovascular: denies: chest pain, palpitations Endocrine: no symptoms reported Gastrointestinal: denies: abdominal pain, nausea, diarrhea Genitourinary: denies: urgency, dysuria Musculoskeletal: other (knee and ankle pain ). denies: back pain, joint swelling, arthralgia Skin: denies: rash, lesions Neurological: denies: headache, weakness, paresthesias Psychiatric: denies: anxiety, depression Hematological/Lymphatic: denies: easy bleeding, easy bruising ED Past Medical Hx - Past Medical History Previous Medical History?: Yes Hx Hypertension: Yes Hx Heart Attack/AMI: No Hx Diabetes: No Hx Pulmonary Embolism: No Hx Asthma: Yes Hx COPD: No Hx Tuberculosis: No Additional medical history: PNEUMONIA, back pain - Surgical History Past Surgical History?: No - Social History Smoking Status: Former Smoker Substance Use Type: None - Medications Home Medications: Home Medications Medication Instructions Recorded Confirmed Last Taken Type Amlodipine Besylate [Norvasc] 10 mg PO DAILY 11/09/17 11/09/17 3 Days Ago History ~11/06/17 amLODIPine [Norvasc] 10 mg PO DAILY #30 tab 11/09/17 Unknown Rx Cyclobenzaprine [Flexeril] 10 mg PO TID PRN #30 tablet 07/12/18 Unknown Rx Menthol/Camphor [[place] 1 applicatio TP QID PRN #1 tube 07/12/18 Unknown Rx Ointment] Naproxen 500 mg PO BID PRN #30 tablet 07/12/18 Unknown Rx ED Physical Exam - General Limitations: No Limitations General appearance: alert, in no apparent distress - Head Head exam: Present: atraumatic, normocephalic - Eye Eye exam: Present: normal appearance - ENT ENT exam: Present: mucous membranes moist - Neck Neck exam: Present: normal inspection - Respiratory Respiratory exam: Present: normal lung sounds bilaterally. Absent: respiratory distress, wheezes, stridor, chest wall tenderness - Cardiovascular Cardiovascular Exam: Present: regular rate, normal rhythm. Absent: systolic murmur, diastolic murmur, rubs, gallop - GI/Abdominal GI/Abdominal exam: Present: soft, normal bowel sounds - Rectal Rectal exam: Present: deferred - Extremities Exam Extremities exam: Present: normal inspection, full ROM, normal capillary refill. Absent: tenderness, pedal edema, joint swelling, calf tenderness - Expanded Lower Extremity Exam Right Knee exam: Present: normal inspection, full ROM, tenderness, pain w/ pronation/supination, full knee extension. Absent: swelling, abrasion, laceration, ecchymosis, deformity, crepidus, dislocation, erythema, effusion, posterior draw sign, pain/laxity with valgus, pain/laxity with varus Lower Leg exam: Present: normal inspection, full ROM Ankle exam: Present: full ROM. Absent: tenderness, swelling, abrasion, laceration, ecchymosis, deformity, crepidus, dislocation, erythema, anterior draw sign Foot/Toe exam: Present: normal inspection, full ROM Neuro vascular tendon exam: Present: no vascular compromise. Absent: pulse deficit, abnormal cap refill, motor deficit, sensory deficit, tendon deficit, pallor, foot drop Gait: Positive: observed and normal - Back Exam Back exam: Present: normal inspection, full ROM. Absent: tenderness, CVA tenderness (R), CVA tenderness (L), muscle spasm, paraspinal tenderness, vertebral tenderness, rash noted - Neurological Exam Neurological exam: Present: alert, oriented X3, CN II-XII intact, normal gait, reflexes normal. Absent: motor sensory deficit - Psychiatric Psychiatric exam: Present: normal affect, normal mood - Skin Skin exam: Present: warm, dry, intact, normal color. Absent: rash ED Course Vital Signs 07/11/18 07/11/18 22:13 22:52 Temperature 98.2 F Pulse Rate 85 85 Respiratory 16 20 Rate Blood Pressure 193/128 161/113 O2 Sat by Pulse 97 94 Oximetry ED Lower Extremity MDM - Radiology Data Radiology results: report reviewed, image reviewed interpreted by me: Findings [facility] [address] [place] [address] XRay Report Signed Patient: AMRIT PINEDA MR#: [id number] : 04/06/1991 Acct:[id number] Age/Sex: 27 / F ADM Date: 07/11/18 Loc: ED Attending Dr: Ordering Physician: MAXX SAMUELS NP Date of Service: 07/11/18 Procedure(s): XR chest routine 2V Accession Number(s): [id number] cc: MAXX SAMUELS NP Fluoro Time In Minutes: FINAL REPORT EXAM: XR CHEST ROUTINE 2V HISTORY: sob TECHNIQUE: 2 views of the chest. PRIORS: None. FINDINGS: The cardiomediastinal silhouette appears normal. The lungs are clear. The bones and soft tissues are unremarkable. IMPRESSION: No evidence of acute cardiopulmonary disease Transcribed By: SHANKAR Dictated By: ACE RAMIREZ MD Electronically Authenticated By: ACE RAMIREZ MD Signed Date/Time: 07/12/18 0044 Findings [facility] [address] [place] [address] XRay Report Signed Patient: JOHNSON MIKE MR#: [id number] : 1985 Acct:[id number] Age/Sex: 33 / M ADM Date: 07/11/18 Loc: ED Attending Dr: Ordering Physician: SAFIA CARRION MD Date of Service: 07/11/18 Procedure(s): XR ankle 2V RT Accession Number(s): [id number] cc: ED MD SHEYLA Fluoro Time In Minutes: FINAL REPORT EXAM: XR ANKLE 2V RT HISTORY: fall pain swelling TECHNIQUE: Two views of the right ankle PRIORS: None. FINDINGS: The bones are normally aligned and mineralized. The joint spaces are well- preserved. There is no evidence of acute fracture. The soft tissues are unremarkable. There are plantar and Achilles calcaneal spurs. IMPRESSION: No evidence of acute fracture or subluxation. - Medical Decision Making xrays of knee and ankle are normal no fracture no soft tissue abnormality , plan: nsaids muscle relaxants ,analgesic balm follow up with pcp and ortho if symptoms persist pt verbalized agreement and understanding of same. pt for dc to home in stable condition at this time pt is ambulatory with steady gait at this time. Critical care attestation.: If time is entered above; I have spent that time in minutes in the direct care of this critically ill patient, excluding procedure time. ED Disposition Clinical Impression: Fall Qualifiers: Encounter type: initial encounter Qualified Code(s): W19.XXXA - Unspecified fall, initial encounter Right ankle strain Qualifiers: Encounter type: initial encounter Qualified Code(s): S96.911A - Strain of unspecified muscle and tendon at ankle and foot level, right foot, initial encounter Strain of right knee and leg Qualifiers: Encounter type: initial encounter Qualified Code(s): S86.911A - Strain of unspecified muscle(s) and tendon(s) at lower leg level, right leg, initial encounter Disposition: TO HOME OR SELFCARE Is pt being admited?: No Does the pt Need Aspirin: No Condition: Stable Instructions: Ankle Exercises (GEN), Knee Pain (ED), Knee Exercises (GEN) Prescriptions: Cyclobenzaprine [Flexeril] 10 mg PO TID PRN #30 tablet PRN Reason: Muscle Spasm Menthol/Camphor [[place] Ointment] 1 applicatio TP QID PRN #1 tube PRN Reason: pain Naproxen 500 mg PO BID PRN #30 tablet PRN Reason: Pain , Severe (7-10) Referrals: PRIMARY CARE,MD [Primary Care Provider] - 3-5 Days Forms: Work/School Release Form(ED) Time of Disposition: 02:07
== END 2018-07-12 02:20 | disposition home or self-care (01) ==
LOC: ED 21:33
DX: S96.911A Strain of unspecified muscle and tendon at ankle and foot level, right foot, initial encounter (principal); S86.911A Strain of unspecified muscle(s) and tendon(s) at lower leg level, right leg, initial encounter; I10 Essential (primary) hypertension; J45.909 Unspecified asthma, uncomplicated; Z87.891 Personal history of nicotine dependence; W17.2XXA Fall into hole, initial encounter; Y93.89 Activity, other specified; Y92.009 Unspecified place in unspecified non-institutional (private) residence as the place of occurrence of the external cause; Y99.8 Other external cause status

== ENCOUNTER 2019-02-04 21:13 | Emergency (ER) | payer SELFPAY ==
--- NOTE | 2019-02-04 22:21 | Event Note ---
ED Screening Note Date of service: 02/04/19 Time: 22:17 ED Screening Note: 33 y/o male male comes in for bilateral lower leg edama times 6 days. Was seen at [facility] told that he has cellulite but was placed on abx. Denies any SOB. This initial assessment/diagnostic orders/clinical plan/treatment(s) is/are subject to change based on patients health status, clinical progression and re- assessment by fellow clinical providers in the ED. Further treatment and workup at subsequent clinical providers discretion. Patient/guardian urged not to elope from the ED as their condition may be serious if not clinically assessed and managed. Initial orders include:
[2019-02-04 23:01] LABS: Hematocrit 44.3 % (35.5-45.6); Hemoglobin 15.1 gm/dl (11.8-15.2); Lymphocytes % (Auto) 11.7 % (13.4-35.0); Mean Corpuscular HGB Conc 34 % (32-34); Mean Corpuscular Volume 92 fl (84-94); Monocytes % (Auto) 3.6 % (0.0-7.3); Platelet Count 278 K/mm3 (140-440); Red Blood Count 4.84 M/mm3 (3.65-5.03); Red Cell Distribution Width 13.3 % (13.2-15.2)
[2019-02-04 23:02] LABS: Basophils # (Auto) 0.1 K/mm3 (0.0-0.1); Basophils % (Auto) 0.6 % (0.0-1.8); Eosinophils # (Auto) 0.7 K/mm3 (0.0-0.4); Eosinophils % (Auto) 6.5 % (0.0-4.3); Lymphocytes # (Auto) 1.2 K/mm3 (1.2-5.4); Monocytes # (Auto) 0.4 K/mm3 (0.0-0.8)
[2019-02-04 23:20] LABS: Alanine Aminotransferase 20 units/L (7-56); BUN/Creatinine Ratio 13; Blood Urea Nitrogen 12 mg/dL (9-20); Calcium 9.1 mg/dL (8.4-10.2); Hemolysis Index 9
[2019-02-04] MEDS ORDERED: TYLENOL PO ONE (23:26)
[2019-02-04] MEDS ORDERED: LASIX PO ONE (23:26)
--- NOTE | 2019-02-05 00:06 | XRay Report ---
. CHEST 2 VIEWS INDICATION / CLINICAL INFORMATION: peripheral edema. COMPARISON: 01/28/2017 FINDINGS: SUPPORT DEVICES: None. HEART / MEDIASTINUM: No significant abnormality. LUNGS / PLEURA: No significant pulmonary or pleural abnormality. No pneumothorax. ADDITIONAL FINDINGS: No significant additional findings. IMPRESSION: 1. No acute findings. Signer Name: Leonid Hernandes MD Signed: 02/05/2019 12:01 AM Workstation Name: [id number]
--- NOTE | 2019-02-05 02:21 | Emergency Department Report ---
ED Extremity Problem HPI - General Chief complaint: Skin/Abscess/Foreign Body Stated complaint: CELLULITUS IN LEGS Time Seen by Provider: 02/04/19 22:16 Source: patient Mode of arrival: Ambulatory Limitations: No Limitations - History of Present Illness Initial comments: Patient is a 33-year-old -[place] Citizen male with a history of morbid obesity hypertension, asthma and chronic lower leg lymphedema presents to the ED with complaint of worsening leg swelling and pain for the last 2 weeks. Patient states that he was evaluated extensively about 3 days ago at another emergency department in [facility] and was discharged home having not found any abnormal findings other than the swelling of the lower legs. Patient denies dizziness, fever, chills, chest pain, shortness of breath, change in vision, traumatic injury, numbness and tingling or weakness of lower extremities bilaterally, dizziness, low back pain, headache or syncope and dyspnea on exertion. MD Complaint: extremity pain (Bilateral lower leg swelling and pain), extremity swelling (bilateral lower legs) -: Gradual, week(s) (2) Location: bilateral lower extremity History of Same: Yes -: Yes myalgia, No arthralgia, No fever, No associated dyspnea, No associated chest pain Radiation: none Severity scale (0 -10): 4 Quality: aching, sharp Consistency: constant Improves with: rest Worsens with: weight bearing, walking, exertion, palpation Associated Symptoms: denies other symptoms - Related Data Home Medications Medication Instructions Recorded Confirmed Last Taken Amlodipine Besylate [Norvasc] 10 mg PO DAILY 11/09/17 11/09/17 3 Days Ago ~11/06/17 Previous Rx's Medication Instructions Recorded Last Taken Type amLODIPine [Norvasc] 10 mg PO DAILY #30 tab 11/09/17 Unknown Rx Cyclobenzaprine [Flexeril] 10 mg PO TID PRN #30 tablet 07/12/18 Unknown Rx Menthol/Camphor [[place] 1 applicatio TP QID PRN #1 tube 07/12/18 Unknown Rx Ointment] Naproxen 500 mg PO BID PRN #30 tablet 07/12/18 Unknown Rx Ibuprofen [Motrin] 800 mg PO Q8HR PRN #24 tablet 02/05/19 Unknown Rx Lisinopril/Hydrochlorothiazide 1 each PO DAILY #30 tablet 02/05/19 Unknown Rx [Zestoretic 10-12.5 mg Tablet] Allergies Allergy/AdvReac Type Severity Reaction Status Date / Time No Known Allergies Allergy Verified 01/28/17 01:03 ED Review of Systems ROS: Stated complaint: CELLULITUS IN LEGS Other details as noted in HPI Comment: All other systems reviewed and negative Constitutional: denies: chills, fever Eyes: denies: eye pain, eye discharge, vision change ENT: denies: ear pain, throat pain Respiratory: denies: cough, shortness of breath, wheezing Cardiovascular: denies: chest pain, palpitations Endocrine: no symptoms reported Gastrointestinal: denies: abdominal pain, nausea, diarrhea Genitourinary: denies: urgency, dysuria Musculoskeletal: joint swelling, arthralgia, myalgia, other (Bilateral lower leg swelling and pain). denies: back pain Skin: denies: rash, lesions Neurological: denies: headache, weakness, paresthesias Psychiatric: denies: anxiety, depression Hematological/Lymphatic: denies: easy bleeding, easy bruising ED Past Medical Hx - Past Medical History Hx Hypertension: Yes Hx Heart Attack/AMI: No Hx Diabetes: No Hx Pulmonary Embolism: No Hx Asthma: Yes Hx COPD: No Hx Tuberculosis: No Additional medical history: PNEUMONIA, back pain - Social History Smoking Status: Never Smoker Substance Use Type: None - Medications Home Medications: Home Medications Medication Instructions Recorded Confirmed Last Taken Type Amlodipine Besylate [Norvasc] 10 mg PO DAILY 11/09/17 11/09/17 3 Days Ago H istory ~11/06/17 amLODIPine [Norvasc] 10 mg PO DAILY #30 tab 11/09/17 Unknown Rx Cyclobenzaprine [Flexeril] 10 mg PO TID PRN #30 tablet 07/12/18 Unknown Rx Menthol/Camphor [[place] 1 applicatio TP QID PRN #1 tube 07/12/18 Unknown Rx Ointment] Naproxen 500 mg PO BID PRN #30 tablet 07/12/18 Unknown Rx Ibuprofen [Motrin] 800 mg PO Q8HR PRN #24 tablet 02/05/19 Unknown Rx Lisinopril/Hydrochlorothiazide 1 each PO DAILY #30 tablet 02/05/19 Unknown Rx [Zestoretic 10-12.5 mg Tablet] ED Physical Exam - General Limitations: No Limitations General appearance: alert, in no apparent distress - Head Head exam: Present: atraumatic, normocephalic, normal inspection - Eye Eye exam: Present: normal appearance, PERRL, EOMI. Absent: scleral icterus, conjunctival injection, nystagmus - ENT ENT exam: Present: normal exam, normal orophraynx, mucous membranes moist, TM's normal bilaterally, normal external ear exam - Neck Neck exam: Present: normal inspection, full ROM. Absent: tenderness, meningismus, lymphadenopathy, thyromegaly - Respiratory Respiratory exam: Present: normal lung sounds bilaterally. Absent: respiratory distress, wheezes, rales, rhonchi, chest wall tenderness, accessory muscle use, decreased breath sounds - Cardiovascular Cardiovascular Exam: Present: regular rate, normal rhythm, normal heart sounds. Absent: systolic murmur, diastolic murmur, rubs, gallop - GI/Abdominal GI/Abdominal exam: Present: soft, normal bowel sounds. Absent: tenderness, guarding, rebound, hyperactive bowel sounds, hypoactive bowel sounds, mass, bruit - Rectal Rectal exam: Present: deferred - Extremities Exam Extremities exam: Present: normal inspection, tenderness (Bilateral lower legs), normal capillary refill, pedal edema (Bilateral lower leg 2+ edema), joint swelling (Bilateral lower legs), calf tenderness - Back Exam Back exam: Present: normal inspection, full ROM. Absent: tenderness, CVA tenderness (R), CVA tenderness (L), muscle spasm, paraspinal tenderness, verte bral tenderness - Neurological Exam Neurological exam: Present: alert, oriented X3, CN II-XII intact, normal gait, reflexes normal - Psychiatric Psychiatric exam: Present: normal affect, normal mood - Skin Skin exam: Present: warm, dry, intact, normal color. Absent: rash, cyanosis, erythema, urticaria, petechiae, abrasion, ecchymosis ED Course Vital Signs 02/04/19 22:17 Temperature 98.3 F Pulse Rate 88 Blood Pressure 180/103 - Reevaluation(s) Reevaluation #1: 02/05/19 02:22 This is a 33-year-old morbidly obese male with a history of chronic lymphedema of lower extremities bilaterally, hypertension and asthma who presents to the ED with worsening lower extremity pain and swelling for the last 2 weeks. In the ED, patient is alert and oriented 3 and is not in distress however was hypertensive in triage. Lab tests results were reviewed and are unremarkable including troponin and BNP levels. EKG shows normal sinus rhythm with ventricular rate of 85 bpm, no pathological Q waves. Chest x-ray shows no acute cardiopulmonary abnormalities. Bilateral lower extremity Doppler venous ultrasound shows no evidence of DVT. Patient was treated in the ED and on reevaluation, patient resting comfortably and sleeping on the chair during reevaluation. The vital signs were rechecked prior to discharge from the ED. Patient was given a prescription hydrochlorothiazide 25 mg to take with his regular blood pressure medications. Patient is advised to follow-up with Dr. Harper for further evaluation. Patient is advised to return to the ED immediately if symptoms get worse. ED Medical Decision Making - Lab Data Result diagrams: 02/04/19 22:33 02/04/19 22:36 - EKG Data EKG shows normal: sinus rhythm Rate: normal - EKG Data Interpretation: normal EKG - Radiology Data Radiology results: report reviewed, image reviewed Chest x-ray shows no acute cardiopulmonary abnormalities - Medical Decision Making This is a 33-year-old morbidly obese male with a history of chronic lymphedema of lower extremities bilaterally, hypertension and asthma who presents to the ED with worsening lower extremity pain and swelling for the last 2 weeks. In the ED, patient is alert and oriented 3 and is not in distress however was hypertensive in triage. Lab tests results were reviewed and are unremarkable including troponin and BNP levels. EKG shows normal sinus rhythm with ventricular rate of 85 bpm, no pathological Q waves. Chest x-ray shows no acute cardiopulmonary abnormalities. Bilateral lower extremity Doppler venous ultrasound shows no evidence of DVT. Patient was treated in the ED and on reevaluation, patient resting comfortably and sleeping on the chair during reevaluation. The vital signs were rechecked prior to discharge from the ED. Patient was given a prescription hydrochlorothiazide 25 mg to take with his regular blood pressure medications. Patient is advised to follow-up with Dr. Harper for further evaluation. Patient is advised to return to the ED immediately if symptoms get worse. - Differential Diagnosis Bilateral leg pain; Chronic lymphedema; Muscle strain, Hypertension Critical care attestation.: If time is entered above; I have spent that time in minutes in the direct care of this critically ill patient, excluding procedure time. ED Disposition Clinical Impression: Uncontrolled hypertension, Lymphedema of both lower extremities Muscle strain of lower extremity Qualifiers: Encounter type: initial encounter Laterality: unspecified laterality Qualified Code(s): S86.919A - Strain of unspecified muscle(s) and tendon(s) at lower leg level, unspecified leg, initial encounter Disposition: TO HOME OR SELFCARE Is pt being admited?: No Does the pt Need Aspirin: No Condition: Stable Instructions: Hypertension (ED), Muscle Strain (ED), Lymphedema (ED), Leg Edema (ED) Additional Instructions: Take medications with food, drink plenty of fluids and follow up with your primary care physician in 5-7 days for reevaluation. Return to the ED immediately if symptoms get worse. Prescriptions: Ibuprofen [Motrin] 800 mg PO Q8HR PRN #24 tablet PRN Reason: Pain , Severe (7-10) Lisinopril/Hydrochlorothiazide [Zestoretic 10-12.5 mg Tablet] 1 each PO DAILY #30 tablet Referrals: DONTAE HARPER MD [Staff Physician] - 3-5 Days Time of Disposition: 02:29 Print Language: CONGOLESE
[2019-02-05 05:20] VITALS: BP 158/106
--- NOTE | 2019-02-05 07:44 | Vascular Lab Report ---
DUPLEX DOPPLER LOWER EXTREMITY VEINS, BILATERAL INDICATION: Bilateral lower extremity edema and pain. TECHNIQUE: Duplex doppler imaging was performed through the veins of both lower extremities using ve nous compression and other maneuvers. COMPARISON: No relevant prior imaging study available. FINDINGS: The images are somewhat limited secondary to bilateral lower extremity edema. Right Common femoral vein: Negative. Right Superficial femoral vein: Negative. Right Popliteal vein: Negative. Right Calf veins: Not visualized. Left Common femoral vein: Negative. Left Superficial femoral vein: Negative. Left Popliteal vein: Negative. Left Calf veins: Not visualized. Additional findings: None.. IMPRESSION: No sonographic evidence for DVT in either lower extremity. Signer Name: Rick Cano Jr, MD Signed: 02/05/2019 7:40 AM Workstation Name: [id number]
== END 2019-02-05 02:45 | disposition home or self-care (01) ==
LOC: ED 21:13
DX: S86.911A Strain of unspecified muscle(s) and tendon(s) at lower leg level, right leg, initial encounter (principal); S86.912A Strain of unspecified muscle(s) and tendon(s) at lower leg level, left leg, initial encounter; I10 Essential (primary) hypertension; I89.0 Lymphedema, not elsewhere classified; J45.909 Unspecified asthma, uncomplicated; J18.9 Pneumonia, unspecified organism; M54.9 Dorsalgia, unspecified; Z79.899 Other long term (current) drug therapy; X58.XXXA Exposure to other specified factors, initial encounter; Y93.89 Activity, other specified; Y92.89 Other specified places as the place of occurrence of the external cause; Y99.8 Other external cause status
CPT/HCPCS: 36415; 71046; 80053; 83880; 84484; 85025; 93005; 93010; 93970